=== PATIENT | female | born 1980 | race African-American/Black ===

== ENCOUNTER 2017-06-20 19:50 | Emergency (ER) | payer OTHER ==
[2017-06-20 19:56] VITALS: O2SAT 100
[2017-06-20] MEDS ORDERED: Sodium Chloride 0.9% 1,000 ML IV STA (20:25)
--- NOTE | 2017-06-20 20:31 | ED PDOC ---
HPI: Female Pain Time Seen by Provider: 06/20/17 20:07 Chief Complaint (Nursing): Female Genitourinary Chief Complaint (Provider): vaginal bleeding History Per: Patient History/Exam Limitations: no limitations Onset/Duration Of Symptoms: Hrs, Waxing/Waning Current Symptoms Are (Timing): Gone Now Quality Of Discomfort: Cramping Additional History Per: Patient, Family Additional Complaint(s): 37 y/o female presents for evaluation of intermittent heavy vaginal bleeding x 2 hours. Patient states she had scheduled D&C early this afternoon for 6 week miscarriage, notes bleeding to have started around 18:00, saturating 2 pads since then. Associated pelvic cramping. Patient states bleeding came in 2 episodes; during last episode while walking to the bathroom she reported feeling very lightheaded and then fainted. at bedside, states he was with her and caught her as she fainted and lowered her to ground, no injury sustained. Patient awake, alert, oriented upon arrival; states she is feeling better. Denies headache, dizziness, vision changes, chest pain, shortness of breath, palpitations, abdominal/pelvic pain, vaginal bleeding, dysuria. Abnormal Vaginal Bleeding: Yes Past Medical History Reviewed: Historical Data, Nursing Documentation, Vital Signs Vital Signs: Last Vital Signs Temp 96.6 F L 06/20/17 19:55 Pulse 60 06/20/17 19:55 Resp 16 06/20/17 19:55 BP 96/52 L 06/20/17 19:55 Pulse Ox 100 06/20/17 19:55 - Medical History PMH: No Chronic Diseases - Surgical History Surgical History: No Surg Hx - Family History Family History: States: No Known Family Hx - Allergies Allergies/Adverse Reactions: Allergies Allergy/AdvReac Type Severity Reaction Status Date / Time No Known Allergies Allergy Verified 06/20/17 19:56 Review of Systems ROS Statement: Except As Marked, All Systems Reviewed And Found Negative Genitourinary Female: Positive for: Vaginal Bleeding Physical Exam - Reviewed Nursing Documentation Reviewed: Yes Vital Signs Reviewed: Yes - Physical Exam Appears: Positive for: Well, Non-toxic, No Acute Distress Head Exam: Positive for: ATRAUMATIC, NORMAL INSPECTION, NORMOCEPHALIC Skin: Positive for: Normal Color Eye Exam: Positive for: Normal appearance ENT: Positive for: Normal ENT Inspection Cardiovascular/Chest: Positive for: Regular Rate, Rhythm Respiratory: Positive for: Normal Breath Sounds Gastrointestinal/Abdominal: Positive for: Normal Exam Back: Positive for: Normal Inspection Extremity: Positive for: Normal ROM Neurologic/Psych: Positive for: Alert, Oriented - Laboratory Results Result Diagrams: 06/20/17 21:17 06/20/17 21:17 - ECG O2 Sat by Pulse Oximetry: 100 - Progress ED Course And Treament: labs, IV fluids On re-eval, patient states she is feeling better. Patient educated on findings, discharged with instructions to follow up with [facility] in 2 days. Advised Tylenol PRN pain. Return to ED for worsening/concerning symptoms. Disposition - Clinical Impression Clinical Impression: Syncope, Status post dilation and curettage, Vaginal bleeding - Patient ED Disposition Is Patient to be Admitted: No Counseled Patient/Family Regarding: Studies Performed, Diagnosis, Need For Followup - Disposition Disposition: Routine/Home Disposition Time: 23:17 Condition: IMPROVED Additional Instructions: Follow up with [employer] [employer] [facility] within 2 days. Take Tylenol as directed, as needed for pain. Return to ED for worsening/concerning symptoms. Instructions: Syncope (ED) Forms: [employer] (Kosovan)
[2017-06-20 21:05] VITALS: RESP 18
[2017-06-20] MEDS ORDERED: Oxycodone/Acetaminophen 5/325 mg Tab PO ONE (21:24)
[2017-06-20 21:25] LABS: BASO # 0.1 K/uL (0.0-0.2); BASO % 0.5 % (0.0-2.0); EOS # 0.1 K/uL (0.0-0.7); EOS % 0.9 % (0.0-4.0); HEMATOCRIT 33.3 % (34.0-47.0); LYMPH # 2.2 K/uL (1.0-4.3); LYMPH % 22.4 % (20.0-40.0); MEAN CELL VOLUME 82.5 fl (81.0-99.0); MEAN CORPUSCULAR HEMOGLOBIN 27.2 pg (27.0-31.0); MEAN PLATELET VOLUME 8.8 fl (7.2-11.7); MONO # 0.6 K/uL (0.0-0.8); MONO % 5.8 % (0.0-10.0); NEUT # 6.8 K/uL (1.8-7.0); NEUT % 70.4 % (50.0-75.0); NRBC % 0.1 % (0.0-0.0); RED CELL DISTRIBUTION WIDTH 12.6 % (11.5-14.5); WHITE BLOOD COUNT 9.7 K/uL (4.8-10.8)
[2017-06-20 21:34] LABS: CALCIUM 8.8 mg/dL (8.4-10.2); CARBON DIOXIDE 22 mmol/L (22-30); CHLORIDE 106 mmol/L (98-107); GFR AFRICAN-AMERICAN > 60; GLUCOSE,RANDOM 113 mg/dL (65-105); SODIUM 137 mmol/l (132-148)
[2017-06-20 21:36] LABS: ALB/GLOB RATIO 1.3 (1.0-2.1); ALKALINE PHOSPHATASE 35 U/L (38-126); ALT/SGPT 22 U/L (9-52); AST/SGOT 48 U/L (14-36); BILIRUBIN,TOTAL 0.8 mg/dl (0.2-1.3); BLOOD UREA NITROGEN 8 mg/dl (7-17); POTASSIUM 4.9 MMOL/L (3.6-5.0); TOTAL PROTEIN 7.1 G/DL (6.3-8.2)
[2017-06-20 23:09] VITALS: TEMP 98
[2017-06-20 23:21] VITALS: BP 121/88; PULSE 82
== END 2017-06-20 23:23 | disposition home or self-care (01) ==
LOC: H.ER 19:50
DX: N93.9 Abnormal uterine and vaginal bleeding, unspecified (principal); R55 Syncope and collapse; Z87.59 Personal history of other complications of pregnancy, childbirth and the puerperium
CPT/HCPCS: 80053; 85025; 86850; 86900; 99284; J7040